=== PATIENT | female | born 1990 | race Caucasian/White ===

== ENCOUNTER 2020-10-10 09:22 | Inpatient (IN) | payer OTHER, SELFPAY ==
[~2020-10-10] VITALS: Ht 170.2 cm; Wt 108.9 kg
[2020-10-10] MEDS ORDERED: CITRIC ACID/SODIUM CITRATE 30 ML UDC PO SCH (10:30)
[2020-10-10 10:37] LABS: BASOPHILS # (AUTO) 0.1 K/uL (0.00-0.22); BASOPHILS % (AUTO) 0.6 % (0.0-2.0); EOSINOPHILS # (AUTO) 0.1 K/uL (0-0.4); EOSINOPHILS % (AUTO) 0.8 % (0.0-4.0); HEMOGLOBIN 13.8 g/dL (12.0-16.0); LYMPHOCYTES # (AUTO) 1.5 K/uL (2.5-16.5); LYMPHOCYTES % (AUTO) 13.6 % (20.5-51.1); MEAN CORPUSCULAR HEMOGLOBIN 35 pg (27-31); MEAN CORPUSCULAR HGB CONC 34 g/dL (33-37); MEAN CORPUSCULAR VOLUME 103.5 fL (80-94); MONOCYTES # (AUTO) 0.5 K/uL (0.8-1.0); MONOCYTES % (AUTO) 4.9 % (1.7-9.3); NEUTROPHILS # (AUTO) 8.7 K/uL (1.8-7.7); NEUTROPHILS % (AUTO) 80.1 % (42.2-75.2); PLATELET COUNT (AUTO) 214 K/uL (140-450); RED BLOOD CELL COUNT(AUTO) 3.97 MIL/uL (4.20-5.40); RED CELL DISTRIBUTION WIDTH 13.2 % (11.6-13.7); WHITE BLOOD COUNT (AUTO) 10.8 K/uL (4.8-10.8)
[2020-10-10 10:41] LABS: APPEARANCE,URINE SL CLOUDY (CLEAR); BILIRUBIN,URINE NEGATIVE (NEGATIVE); BLOOD, URINE 3+ (NEGATIVE); COLOR,URINE AMBER (YELLOW); LEUKOCYTE ESTERASE ,URINE NEGATIVE (NEGATIVE); NITRITE, URINE NEGATIVE (NEGATIVE); PH,URINE 6.5 (5.0-9.0); UGLUCOSE NEGATIVE (NEGATIVE)
[2020-10-10] MEDS: LACTATED RINGERS 1,000 ML IV SCH ×3 (10:52→12:40)
[2020-10-10 10:53] LABS: ALBUMIN 2.8 g/dL (3.4-5.0); ANION GAP 14.6 (8-16); CARBON DIOXIDE 21.1 mmol/L (21-32); CREATININE 0.6 mg/dL (0.6-1.3); POTASSIUM 3.7 mmol/L (3.5-5.1); TOTAL BILIRUBIN 0.7 mg/dL (0.0-1.0)
[2020-10-10] MEDS ORDERED: fentaNYL citrate 0.05 MG/ML VIAL ONE (11:40)
[2020-10-10] MEDS ORDERED: MIDAZOLAM 2 MG/2 ML VIAL ONE (11:41)
[2020-10-10] MEDS ORDERED: MORPHINE PRES FREE 10 MG/10 ML AMP IV ONE (11:41)
[2020-10-10 11:44] VITALS: BP 120/71
[2020-10-10 11:46] LABS: RBC,URINE 20-50 /HPF (0-5)
[2020-10-10 11:47] LABS: WBC,URINE 0-5 /HPF (0-5)
[2020-10-10] MEDS ORDERED: ONDANSETRON 4 MG/2 ML VIAL IVP PRN ×2 (12:05)
[2020-10-10] MEDS ORDERED: MEPERIDINE 25 MG/ML SYR IVP PRN (12:05)
[2020-10-10] MEDS ORDERED: NALOXONE 0.4 MG/ML VIAL IVP PRN ×2 (12:05)
[2020-10-10] MEDS ORDERED: diphenhydrAMINE 50 MG/ML VIAL IVP PRN ×2 (12:05)
[2020-10-10] MEDS ORDERED: OXYTOCIN 20 UNITS in LACTATED RINGERS 1,000 ML IV SCH (12:05)
[2020-10-10] MEDS ORDERED: PHENYLEPHRINE 10 MG/ML VIAL ONE (12:44)
[2020-10-10] MEDS ORDERED: ONDANSETRON 4 MG/2 ML VIAL ONE (12:44)
[2020-10-10] MEDS ORDERED: DEXAMETHASONE 4 MG/ML VIAL ONE (12:44)
[2020-10-10] MEDS ORDERED: PNV91TAB10 PO (12:50)
[2020-10-10] MEDS ORDERED: METHYLERGONOVINE 0.2 MG/ML AMP IM PRN (13:00)
[2020-10-10] MEDS ORDERED: KETOROLAC 30 MG/ML VIAL IVP PRN (13:00)
[2020-10-10] MEDS ORDERED: TEMAZEPAM 15 MG CAP PO PRN (13:00)
[2020-10-10] MEDS ORDERED: OXYTOCIN 20 UNITS/LR PREMIX 1,000 ML IV ONE (13:41)
[2020-10-10] MEDS: KETOROLAC 30 MG/ML VIAL IM/IVP SCH ×2 (18:10→23:45)
[2020-10-10] MEDS: OXYTOCIN 20 UNITS in LACTATED RINGERS 1,000 ML IV SCH (20:20)
[2020-10-10] MEDS: DOCUSATE SOD/SENNA 50/8.6 MG 1 TAB PO SCH (21:00)
[2020-10-11] MEDS ORDERED: OXYTOCIN 20 UNITS/LR PREMIX 1,000 ML IV ONE (03:43)
[2020-10-11] MEDS: OXYTOCIN 20 UNITS in LACTATED RINGERS 1,000 ML IV SCH ×2 (03:49→12:00)
[2020-10-11] MEDS: KETOROLAC 30 MG/ML VIAL IM/IVP SCH ×2 (05:45→12:08)
[2020-10-11] MEDS ORDERED: oxyCODONE/APAP 5/325 MG 1 TAB TAB PO PRN (08:00)
--- NOTE | 2020-10-11 08:20 | NUR ---
PATIENT HAS BEEN SCREENED AND CATEGORIZED LOW NUTRITION RISK. PATIENT WILL BE SEEN WITHIN 7 DAYS OF ADMISSION. 10/17/[address]
[2020-10-11] MEDS ORDERED: CAMERA MC ONE (19:16)
[2020-10-11 19:35] LABS: BASOPHILS % (AUTO) 0.2 % (0.0-2.0); EOSINOPHILS # (AUTO) 0.1 K/uL (0-0.4); EOSINOPHILS % (AUTO) 0.5 % (0.0-4.0); HEMATOCRIT 31.3 % (36-48); HEMOGLOBIN 10.6 g/dL (12.0-16.0); LYMPHOCYTES # (AUTO) 1.6 K/uL (2.5-16.5); LYMPHOCYTES % (AUTO) 15.8 % (20.5-51.1); MEAN CORPUSCULAR HEMOGLOBIN 35 pg (27-31); MEAN CORPUSCULAR HGB CONC 34 g/dL (33-37); MEAN CORPUSCULAR VOLUME 103.8 fL (80-94); MONOCYTES # (AUTO) 0.8 K/uL (0.8-1.0); MONOCYTES % (AUTO) 7.4 % (1.7-9.3); NEUTROPHILS # (AUTO) 7.9 K/uL (1.8-7.7); NEUTROPHILS % (AUTO) 76.1 % (42.2-75.2); PLATELET COUNT (AUTO) 180 K/uL (140-450); RED BLOOD CELL COUNT(AUTO) 3.02 MIL/uL (4.20-5.40); WHITE BLOOD COUNT (AUTO) 10.3 K/uL (4.8-10.8)
[2020-10-11] MEDS: DOCUSATE SOD/SENNA 50/8.6 MG 1 TAB PO SCH (21:24)
[2020-10-12] MEDS: oxyCODONE/APAP 5/325 MG 1 TAB TAB PO PRN ×5 (00:04→21:19)
[2020-10-12] MEDS: IBUPROFEN 800 MG TAB PO PRN ×2 (08:21→13:52)
[2020-10-12] MEDS: SIMETHICONE 80 MG TAB.CHEW PO PRN ×3 (08:21→17:19)
[2020-10-12] MEDS: DOCUSATE SOD/SENNA 50/8.6 MG 1 TAB PO SCH (21:18)
[2020-10-13] MEDS: oxyCODONE/APAP 5/325 MG 1 TAB TAB PO PRN ×2 (03:01→08:13)
[2020-10-13] MEDS: SIMETHICONE 80 MG TAB.CHEW PO PRN ×2 (03:05→08:12)
[2020-10-13] MEDS ORDERED: CAMERA MC ONE (03:59)
[2020-10-13] MEDS ORDERED: IBUP-2213 PO (09:26)
[2020-10-13] MEDS ORDERED: FERR325E14 PO (09:26)
[2020-10-13] MEDS ORDERED: ACET-5629 PO (09:27)
== END 2020-10-13 15:40 | disposition home or self-care (01) | DRG 540 ==
LOC: MLD 09:22 → OBSVTOIN 10:29 → MFCC 14:30
PROVIDERS: ADMIT Obstetrics & Gynecology; ATTEND Obstetrics & Gynecology
PROC: 0UB70ZZ Excision of Bilateral Fallopian Tubes, Open Approach (ICD-10-PCS; 2020-10-10)
PROC: 3E0234Z Introduction of Serum, Toxoid and Vaccine into Muscle, Percutaneous Approach (ICD-10-PCS; 2020-10-10)
PROC: 10D00Z1 Extraction of Products of Conception, Low, Open Approach (ICD-10-PCS; principal; 2020-10-10 12:30)
DX: O34.211 Maternal care for low transverse scar from previous cesarean delivery (principal); Z3A.38 38 weeks gestation of pregnancy; Z37.0 Single live birth; Z30.2 Encounter for sterilization; Z20.822 Contact with and (suspected) exposure to COVID-19; Z23 Encounter for immunization
CPT/HCPCS: 36415; 80053; 81001; 85025; 86592; 86886; 86900; 86901; 88302; 90715; 96360; 96361; 96374; G0378; J0690; J1100; J1885; J2250; J2270; J2370; J2405; J2590; J3010; J7060; J7120